=== PATIENT | female | born 2000 | race Caucasian/White ===

== ENCOUNTER 2021-12-22 16:20 | Inpatient (IN) | payer MEDICAID ==
[~2021-12-22] VITALS: Ht 152.4 cm; Wt 68.9 kg
[2021-12-22] MEDS ORDERED: NALBUPHINE HCL 10 MG/ML AMP IVP PRN (17:00)
[2021-12-22] MEDS ORDERED: TERBUTALINE SULFATE 1 MG/ML VIAL SUBCUT ONE (17:00)
[2021-12-22] MEDS ORDERED: DINOPROSTONE 10 MG SUPP VG ONE (17:00)
[2021-12-22] MEDS ORDERED: OXYTOCIN/0.9 % SODIUM CHLORIDE 1,000 ML IV SCH (17:00)
[2021-12-22 17:42] VITALS: BP_SYST 109
[2021-12-22 17:47] LABS: BASOPHILS % (AUTO) 0.2 % (0.0-2.0); EOSINOPHILS # (AUTO) 0.1 K/uL (0.0-0.4); EOSINOPHILS % (AUTO) 0.9 % (0.0-4.0); HEMATOCRIT 38.2 % (36-48); LYMPHOCYTES # (AUTO) 1.3 K/uL (1.0-5.5); LYMPHOCYTES % (AUTO) 15.2 % (20.5-51.5); MEAN CORPUSCULAR HEMOGLOBIN 31 pg (27-31); MEAN CORPUSCULAR HGB CONC 34 % (32-36); MEAN CORPUSCULAR VOLUME 90 fL (79.0-98.0); MONOCYTES # (AUTO) 0.6 K/uL (0.0-1.0); MONOCYTES % (AUTO) 6.7 % (1.7-9.3); NEUTROPHILS # (AUTO) 6.7 K/uL (1.8-7.7); PLATELET COUNT (AUTO) 221 K/uL (130-430); RED BLOOD CELL COUNT(AUTO) 4.24 MIL/uL (4.2-6.2); RED CELL DISTRIBUTION WIDTH 13.6 % (9.0-15.0); WHITE BLOOD COUNT (AUTO) 8.8 K/uL (4.8-10.8)
[2021-12-22] MEDS: LR 1,000 ML IV SCH (18:05)
[2021-12-23] MEDS: LR 1,000 ML IV SCH (02:02)
[2021-12-23] MEDS ORDERED: ROPIVACAINE HCL/PF 0.2% 200 ML ONE (05:48)
[2021-12-23] MEDS ORDERED: fentaNYL CITRATE/PF 100 MCG/2 ML AMP ONE (05:48)
[2021-12-23] MEDS ORDERED: FENT2mCg/mL-ROPIVA0.2%/NS EPID 200 ML EP SCH (06:00)
[2021-12-23] MEDS ORDERED: LR 500 ML IV ONE (06:00)
[2021-12-23] MEDS ORDERED: ONDANSETRON HCL 4 MG/2 ML VIAL ONE (09:05)
[2021-12-23] MEDS: ONDANSETRON HCL 4 MG/2 ML VIAL IVP PRN ×2 (09:10→13:49)
[2021-12-23] MEDS ORDERED: LIGHT MINERAL OIL 10 ML VIAL MC ONE (11:05)
[2021-12-23] MEDS ORDERED: NALOXONE HCL 0.4 MG/ML AMP (NARCAN) ONE (11:05)
[2021-12-23] MEDS ORDERED: LIDOCAINE PF 1% 30ML(POUR BTL) INJ ONE (11:05)
[2021-12-23] MEDS ORDERED: METHYLERGONOVINE MALEATE 0.2 MG/ML AMP ONE (13:22)
[2021-12-23] MEDS ORDERED: ANUSOL 1 EA SUPP.RECT (PREPARATION H) RC PRN (13:30)
[2021-12-23] MEDS ORDERED: OXYTOCIN/0.9 % SODIUM CHLORIDE 1,000 ML IV SCH (13:30)
[2021-12-23] MEDS ORDERED: DERMOPLAST SPRAY TP PRN (13:30)
[2021-12-23] MEDS ORDERED: WITCH HAZEL LEAF 1 MED.PAD MED.PAD TP PRN (13:30)
[2021-12-23] MEDS ORDERED: DIPH-TET-PERTUS Vaccine 0.5 ML VIAL (ADACEL) I.M. PRN (13:30)
[2021-12-23] MEDS ORDERED: TEMAZEPAM 15 MG CAPSULE PO PRN (13:30)
[2021-12-23] MEDS ORDERED: RHO(D) IMMUNE GLOBULIN/MALTOSE 1500 UNITS/1.3 ML (WINHRO) IM PRN (13:30)
[2021-12-23] MEDS ORDERED: OXYTOCIN/0.9 % SODIUM CHLORIDE 1,000 ML IV ONE (13:30)
[2021-12-23] MEDS ORDERED: MEASLES,MUMPS&RUBELLA VACC/PF 12500 UNIT/0.5 ML VIAL SUBQ PRN (13:30)
[2021-12-23] MEDS ORDERED: LANOLIN 7 GM OINT. TP PRN (13:30)
[2021-12-23] MEDS ORDERED: HYDROCORTISONE 0.5% CREAM 28.4 GM CREAM.GM. TP PRN (13:30)
[2021-12-23] MEDS ORDERED: METHYLERGONOVINE MALEATE 0.2 MG/ML AMP IM ONE (14:15)
[2021-12-23] MEDS ORDERED: HYDROcodone/ACETAMIN 5-325 MG TAB (NORCO/ VICODIN) PO PRN (15:00)
[2021-12-23] MEDS ORDERED: OXYCODONE/ACETAMINOPHEN 5-325 TABLET PO PRN ×2 (15:00)
[2021-12-23] MEDS: IBUPROFEN 600 MG TABLET PO SCH (15:20)
[2021-12-23] MEDS ORDERED: SENNOSIDES/DOCUSATE SODIUM 1 TAB TABLET(SENOKOT-S) PO SCH (21:00)
[2021-12-24] MEDS: IBUPROFEN 600 MG TABLET PO SCH ×3 (00:06→12:16)
[2021-12-24 08:49] LABS: HEMATOCRIT 24.2 % (36-48); HEMOGLOBIN 8.3 g/dL (12.0-16.0)
[2021-12-24] MEDS ORDERED: DOCUSATE SODIUM 100 MG CAPSULE PO SCH (09:00)
[2021-12-27 20:06] LABS: FTA-Ab (T PALLIDUM) Non Reactive (Non Reactive)
== END 2021-12-24 16:20 | disposition home or self-care (01) | DRG 560 ==
LOC: SPU 16:20
PROVIDERS: ADMIT Obstetrics & Gynecology; ATTEND Obstetrics & Gynecology
PROC: 10E0XZZ Delivery of Products of Conception, External Approach (ICD-10-PCS; principal; 2021-12-23)
PROC: 0KQM0ZZ Repair Perineum Muscle, Open Approach (ICD-10-PCS; 2021-12-23)
PROC: 3E033VJ Introduction of Other Hormone into Peripheral Vein, Percutaneous Approach (ICD-10-PCS; 2021-12-23)
PROC: 3E0R3BZ Introduction of Anesthetic Agent into Spinal Canal, Percutaneous Approach (ICD-10-PCS; 2021-12-23)
PROC: 00HU33Z Insertion of Infusion Device into Spinal Canal, Percutaneous Approach (ICD-10-PCS; 2021-12-23)
DX: O70.1 Second degree perineal laceration during delivery (principal); Z37.0 Single live birth; D62 Acute posthemorrhagic anemia; Z20.822 Contact with and (suspected) exposure to COVID-19; Z3A.40 40 weeks gestation of pregnancy
CPT/HCPCS: 36415; 81002; 85018; 85025; 86592; 86780; 86886; 86900; 86901; 94760; J2001; J2210; J2300; J2310; J2405; J2590; J3010